=== PATIENT | male | born 1990 | race Asian ===

== ENCOUNTER 2016-05-28 00:35 | Emergency (ER) | payer MEDICAID ==
[2016-05-28] MEDS ORDERED: SODIUM CHLORIDE 0.9% 1,000 ML IV ONE ×2 (00:41→01:00)
[2016-05-28] MEDS ORDERED: ONDANSETRON 4 MG/2 ML VIAL IVP STA (00:41)
[2016-05-28] MEDS ORDERED: FAMOTIDINE 20 MG/2 ML VIAL IVP STA (00:42)
[2016-05-28] MEDS ORDERED: LORazepam 0.5 MG TABLET ONE (00:48)
[2016-05-28] MEDS ORDERED: LORazepam 0.5 MG TABLET PO STA (00:51)
[2016-05-28] MEDS ORDERED: ONDANSETRON 4 MG/2 ML VIAL ONE (00:59)
[2016-05-28] MEDS ORDERED: FAMOTIDINE 20 MG/2 ML VIAL ONE (01:00)
[2016-05-28] MEDS ORDERED: NEUTRA-PHOS 250 MG TABLET PO STA (01:40)
== END 2016-05-28 02:40 | disposition home or self-care (01) ==
DX: R11.2 Nausea with vomiting, unspecified (principal); R10.84 Generalized abdominal pain; F41.9 Anxiety disorder, unspecified; F84.0 Autistic disorder
CPT/HCPCS: 36415; 80053; 83690; 83735; 84100; 85025; 96361; 96374; 96375; 99284; A9270

== ENCOUNTER 2016-05-30 18:36 | Emergency (ER) | payer MEDICAID ==
[2016-05-30] MEDS ORDERED: PROMETHAZINE INJ 12.5 MG in SODIUM CHLORIDE 0.9% 50 ML IV STA (21:00)
[2016-05-30] MEDS ORDERED: SODIUM CHLORIDE 0.9% 1,000 ML IV ONE ×4 (21:00→22:36)
[2016-05-30] MEDS ORDERED: ONDANSETRON 4 MG/2 ML VIAL IVP STA ×2 (21:01→22:03)
[2016-05-30] MEDS ORDERED: FAMOTIDINE 20 MG/50 ML 50 ML IV ONE ×2 (21:02→21:30)
[2016-05-30] MEDS ORDERED: PROMETHAZINE 25 MG/1 ML VIAL ONE (21:29)
[2016-05-30] MEDS ORDERED: SODIUM CHLORIDE 0.9% 50 ML IV ONE (21:30)
[2016-05-30] MEDS ORDERED: POTASSIUM CHLOR 10 MEQ/100 ML 100 ML IV ONE ×2 (22:15→23:04)
[2016-05-30] MEDS ORDERED: ONDANSETRON 4 MG/2 ML VIAL ONE (22:16)
[2016-05-30] MEDS ORDERED: MAG HYDROX/AL HYDROX/SIMETH 30 ML UDC PO STA (22:43)
[2016-05-30] MEDS ORDERED: ACETAMINOPHEN 1,000 MG/100 ML 100 ML IV STA (22:43)
[2016-05-30] MEDS ORDERED: ACETAMINOPHEN 1,000 MG/100 ML 100 ML IV ONE (23:03)
[2016-05-30] MEDS ORDERED: MAG HYDROX/AL HYDROX/SIMETH 30 ML UDC ONE (23:03)
== END 2016-05-31 00:21 | disposition home or self-care (01) ==
DX: K52.9 Noninfective gastroenteritis and colitis, unspecified (principal); E87.6 Hypokalemia; E80.6 Other disorders of bilirubin metabolism
CPT/HCPCS: 36415; 80053; 83690; 85025; 96365; 96375; 99283; 99284; A9270; J0131; J7040

== ENCOUNTER 2016-08-20 11:20 | Emergency (ER) | payer MEDICAID ==
[2016-08-20] MEDS ORDERED: ONDANSETRON 4 MG/2 ML VIAL ONE (12:23)
[2016-08-20] MEDS ORDERED: KETOROLAC 60 MG/2 ML VIAL IVP STA (12:24)
[2016-08-20] MEDS ORDERED: ONDANSETRON 4 MG/2 ML VIAL IVP STA (12:24)
[2016-08-20] MEDS ORDERED: SODIUM CHLORIDE 0.9% 1,000 ML IV ONE (12:24)
[2016-08-20] MEDS ORDERED: KETOROLAC 30 MG/ML VIAL ONE (12:33)
[2016-08-20] MEDS ORDERED: PROMETHAZINE INJ 12.5 MG in SODIUM CHLORIDE 0.9% 50 ML IV STA (13:08)
[2016-08-20] MEDS ORDERED: PROMETHAZINE 25 MG/1 ML VIAL ONE (13:10)
== END 2016-08-20 14:34 | disposition home or self-care (01) ==
DX: E86.0 Dehydration (principal); G43.A0 Cyclical vomiting, in migraine, not intractable; R10.13 Epigastric pain; E87.6 Hypokalemia; F84.0 Autistic disorder

== ENCOUNTER 2016-08-22 08:00 | Outpatient (CLI) | payer MEDICAID | END 2016-08-22 08:01 | disposition home or self-care (01) | DX: R10.9 Unspecified abdominal pain (principal) ==

== ENCOUNTER 2016-09-13 10:32 | Emergency (ER) | payer MEDICAID ==
[2016-09-13] MEDS ORDERED: ONDANSETRON ODT 4 MG TABLET TL STA (10:59)
[2016-09-13] MEDS ORDERED: ONDANSETRON ODT 4 MG TABLET ONE (11:17)
[2016-09-13] MEDS ORDERED: ONDANSETRON 4 MG/2 ML VIAL IVP STA (12:02)
[2016-09-13] MEDS ORDERED: LORazepam 2 MG/ML SYRINGE IVP STA (12:02)
[2016-09-13] MEDS ORDERED: SODIUM CHLORIDE 0.9% 1,000 ML IV ONE (12:02)
[2016-09-13] MEDS ORDERED: LORazepam 2 MG/ML SYRINGE ONE (12:22)
[2016-09-13] MEDS ORDERED: ONDANSETRON 4 MG/2 ML VIAL ONE (12:41)
[2016-09-13] MEDS ORDERED: PROMETHAZINE INJ 12.5 MG in SODIUM CHLORIDE 0.9% 50 ML IV STA (14:16)
[2016-09-13] MEDS ORDERED: PROMETHAZINE 25 MG/1 ML VIAL ONE (14:19)
== END 2016-09-13 15:00 | disposition home or self-care (01) ==
DX: G43.A1 Cyclical vomiting, in migraine, intractable (principal); I10 Essential (primary) hypertension; F31.9 Bipolar disorder, unspecified; F41.9 Anxiety disorder, unspecified; F90.9 Attention-deficit hyperactivity disorder, unspecified type
CPT/HCPCS: 96365; 96375; 99283; 99284; J2060; Q0162

== ENCOUNTER 2016-10-14 09:54 | Emergency (ER) | payer MEDICAID ==
[2016-10-14 10:21] LABS: BILIRUBIN,URINE NEGATIVE (NEGATIVE); PH,URINE 8.5 PH (5.0-7.5)
[2016-10-14 10:22] LABS: UA CHARGE (STRIP ONLY) YES; UR CULTURE IF IND NOT INDICATED
--- NOTE | 2016-10-14 12:09 | ED Physician Documentation ---
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 Has had similar in the past episodically.). No: Fever, Chest pain Contributing factors: No: Sick contact, Bad food, Travel, Recent antibiotics, Alcohol use Worsened by: Eating Similar symptoms before: No diagnosis (presumed anxiety or cyclic vomiting.) Review of Systems Constitutional: denies: Fever Nose: denies: Rhinorrhea / runny nose, Congestion Throat: denies: Sore throat Cardiac: denies: Chest pain / pressure, Palpitations Respiratory: denies: Dyspnea, Cough GI: reports: Abdominal Pain, Nausea, Vomiting. denies: Abdominal Swelling, Diarrhea : denies: Dysuria, Frequency Neurologic: reports: Generalized weakness. denies: Focal weakness, Numbness Psychiatric: reports: Anxiety. denies: Depressed PD PAST MEDICAL HISTORY - Past Medical History Past Medical History: Yes Cardiovascular: Hypertension Respiratory: None Neuro: None, Other (autism spectrum) Endocrine/Autoimmune: None GI: Other Psych: Depression, Anxiety, Bipolar disorder, ADD/ADHD - Past Surgical History Past Surgical History: Yes - Present Medications Home Medications: Ambulatory Orders Medication Instructions Recorded Confirmed Fluoxetine HCl [Prozac] 1 cap PO DAILY 05/18/15 10/14/16 Propanolol 10 mg PO BID 05/18/15 10/14/16 Aripiprazole [Abilify] 2 mg PO DAILY 08/20/16 10/14/16 Prochlorperazine Maleate 10 mg PO Q6HR PRN #10 tablet 08/20/16 10/14/16 [Compazine] Ondansetron Odt [Zofran] 4 mg TL Q6H PRN #15 tablet 09/13/16 10/14/16 Ondansetron Odt [Zofran] 4 mg TL Q6H PRN #15 tablet 10/14/16 Promethazine Supp [Phenergan Supp] 25 mg [place] Q6H PRN #5 supp 10/14/16 - Allergies Allergies/Adverse Reactions: Allergies Allergy/AdvReac Type Severity Reaction Status Date / Time No Known Drug Allergies Allergy Verified 09/13/16 10:41 - Social History Does the pt smoke?: No Smoking Status: Never smoker Does the pt drink ETOH?: Yes Does the pt have substance abuse?: No - Immunizations Immunizations are current?: Yes - POLST Patient has POLST: No PD ED PE NORMAL - Vitals Vital signs reviewed: Yes - General General: Alert and oriented X 3, Well developed/nourished, Other (dry heaving and anxious.) - HEENT HEENT: Atraumatic, PERRL (nonicteric), Ears normal, Pharynx benign - Neck Neck: Supple, no meningeal sign, No adenopathy - Cardiac Cardiac: RRR, No murmur - Respiratory Respiratory: Clear bilaterally - Abdomen Abdomen: Soft, Non tender, Non distended, No organomegaly. No: Normal bowel sounds (decreased) - Male Male : Deferred - Rectal Rectal: Deferred - Back Back: No CVA TTP - Derm Derm: Normal color, Warm and dry, No rash - Extremities Extremities: No edema, No calf tenderness / cord - Neuro Neuro: Alert and oriented X 3, No motor deficit, Normal speech Results - Vitals Vitals: Vital Signs - 24 hr 10/14/16 10/14/16 13:04 14:30 Heart Rate 76 79 Respiratory 18 18 Rate Blood Pressure 142/97 H 158/53 H O2 Saturation 100 100 Oxygen O2 Source Room air - Labs Labs: Laboratory Tests 10/14/16 10:15 Urine Color YELLOW Urine Clarity CLEAR Urine pH 8.5 H Ur Specific [place] 1.020 Urine Protein TRACE Urine Glucose (UA) NEGATIVE Urine Ketones NEGATIVE Urine Occult Blood NEGATIVE Urine Nitrite NEGATIVE Urine Bilirubin NEGATIVE Urine Urobilinogen 0.2 (NORMAL) Ur Leukocyte Esterase NEGATIVE Ur Microscopic Review NOT INDICATED Urine Culture Comments NOT INDICATED PD MEDICAL DECISION MAKING - ED course Complexity details: reviewed old records, re-evaluated patient (improved with fluids and meds. Taking PO well. ), considered differential, d/w patient Departure - Departure Disposition: 01 Home, Self Care Clinical Impression: Nausea & vomiting Qualifiers: Vomiting type: unspecified Vomiting Intractability: intractable Qualified Code( s): R11.2 - Nausea with vomiting, unspecified Condition: Stable Record reviewed to determine appropriate education?: Yes Instructions: ED Nausea Vomiting Prescriptions: Promethazine Supp [Phenergan Supp] 25 mg [place] Q6H PRN #5 supp PRN Reason: Nausea / Vomiting Ondansetron Odt [Zofran] 4 mg TL Q6H PRN #15 tablet PRN Reason: Nausea / Vomiting Comments: Small frequent fluids today. Ondansatron as needed for nausea; can use Promethazine suppository if vomiting despite Ondansatron. Recheck / return as needed. Tylenol for pains/cramps. Discharge Date/Time: 10/14/16 14:32
[2016-10-14] MEDS ORDERED: SODIUM CHLORIDE 0.9% 1,000 ML IV ONE (12:15)
[2016-10-14] MEDS ORDERED: LORazepam 2 MG/ML SYRINGE IVP STA (12:15)
[2016-10-14] MEDS ORDERED: ONDANSETRON 4 MG/2 ML VIAL IVP STA (12:15)
[2016-10-14] MEDS ORDERED: ONDANSETRON 4 MG/2 ML VIAL ONE (12:16)
[2016-10-14] MEDS ORDERED: LORazepam 2 MG/ML SYRINGE ONE (12:16)
[2016-10-14 14:32] VITALS: BP 158/53
== END 2016-10-14 14:32 | disposition home or self-care (01) ==
LOC: ED 09:54
DX: R11.2 Nausea with vomiting, unspecified (principal); R10.10 Upper abdominal pain, unspecified; I10 Essential (primary) hypertension; F84.0 Autistic disorder
CPT/HCPCS: 81003; 96361; 96374; 96375; 99283; J2060; 81001; 87086